=== PATIENT | male | born 1965 | race Caucasian/White ===

== ENCOUNTER → 2023-09-26 | Day surgery (SDC) | payer OTHER ==
[2023-09-24 15:32] LABS: ANION GAP 15.8 mmol/L (8-16); CALCIUM 8.7 mg/dL (8.4-10.2); CREATININE, SERUM 1.22 mg/dL (0.72-1.25); POTASSIUM 3.8 mmol/L (3.5-5.1)
[~2023-09-26] MED LIST: ACETAMINOPHEN 1000 MG/100 ML IV ONE; AMLODIPINE-BEN1 EAC4 PO; BUPIVACAINE HCL 0.5% INJ 30 ML VIAL INJ ONE; DEXAMETHASONE SOD PHOS INJ 4 MG/ML SDV ONE; FENTANYL CITRATE/PF 100MCG/2 ML INJ ONE; FUROSEMIDE40 MG PO; LIDOCAINE HCL 2% LOCAL INJ 5 ML SDV VIAL INJ ONE; MELOXICAM7.5 MG PO; METOCLOPRAMIDE HCL 10 MG/2ML VIAL ONE; MIDAZOLAM HCL 2 MG/2 ML VIAL ONE; ONDANSETRON HCL INJ 2MG/ML 2ML 2 MG/ML VIAL ONE; PROPOFOL IV EMULSION 10 MG/ML 20 ML VIAL ONE; SEVOFLURANE INHAL SOLN 250 ML PEN BTL ONE
[2023-09-26] MEDS: CEFAZOLIN SODIUM 2 GM ONE (13:24)
[2023-09-26] MEDS: LACTATED RINGER'S 1,000 ML ONE (13:24)
[2023-09-26] MEDS: FENTANYL CITRATE/PF 100MCG/2 ML INJ ONE (14:30)
[2023-09-26] MEDS: HYDROCODONE/APAP 7.5MG-325MG 1 EA TAB ONE (14:45)
[2023-09-26 15:17] VITALS: BP 137/82; PULSE 76; RESP 18; O2SAT 96
== END | disposition home or self-care (01) ==
LOC: OR 11:56
PROVIDERS: ATTEND Podiatrist Foot & Ankle Surgery
DX: M72.2 Plantar fascial fibromatosis (principal); M77.32 Calcaneal spur, left foot; S92.002A Unspecified fracture of left calcaneus, initial encounter for closed fracture; M85.672 Other cyst of bone, left ankle and foot; I10 Essential (primary) hypertension; E78.5 Hyperlipidemia, unspecified; X58.XXXA Exposure to other specified factors, initial encounter; Z01.810 Encounter for preprocedural cardiovascular examination; Z01.812 Encounter for preprocedural laboratory examination; Z79.1 Long term (current) use of non-steroidal anti-inflammatories (NSAID); Z79.899 Other long term (current) drug therapy
CPT/HCPCS: 28119; 28899; 36415; 80048; 93005; C1713; J0131; J1100; J2001; J2250; J2405; J2704; J2765; J3010; J7121; 76000